=== PATIENT | male | born 1980 | race Caucasian/White ===

== ENCOUNTER 2016-08-02 10:43 | Emergency (ER) | payer BC ==
[~2016-08-02] VITALS: Ht 182.9 cm; Wt 86.1 kg
[~2016-08-02 10:43] MED LIST: AMITIZA24 MICROGR PO; ASPIR-LOW81 MG PO; ASPIRIN EC325 MG PO; BUPRENORPHIN-N1 EACH SL; CARAFATE1 GM PO; CICLOPIROX120 ML TP; HYOSCYAMINE0.125 M2 PO; KETOCONAZOLE60 GM TP; MEN'S ONE DAIL1 EACH PO; MIRALAX255 GM PO; NAPROSYN500 MG PO; NEXIUM40 MG PO; REGLAN10 MG PO; SUBOXONE 8 M1 TABLET SL; ZANTAC150 MG PO
[2016-08-02] MEDS ORDERED: NAPROSYN500 MG PO (14:38)
[2016-08-02 14:53] VITALS: BP 120/101
== END 2016-08-02 14:54 | disposition home or self-care (01) ==
LOC: EME 10:43
DX: M54.5 Low back pain (principal); W18.39XA Other fall on same level, initial encounter; Y93.67 Activity, basketball
CPT/HCPCS: 72100; 99281; 99283

== ENCOUNTER 2017-02-09 08:36 | Emergency (ER) | payer BC ==
[~2017-02-09] VITALS: Ht 182.9 cm; Wt 83.5 kg
[2017-02-09 09:39] LABS: HEMATOCRIT 50.1 % (38.0-50.0); HEMOGLOBIN 17.2 G/DL (12.5-16.6); MCH 28.3 PG (29.0-34.0); MCHC 34.3 G/DL (30.0-36.0); MCV 82.5 FL (86-99); PLATELET COUNT 274 K/uL (156-360); RBC DIS.WIDTH-CV 13.1 % (11.8-14.6); RBC DIS.WIDTH-SD 38.8 % (39-53); RED BLOOD COUNT 6.07 M/uL (4.00-5.50); WHITE BLOOD COUNT 18.1 K/uL (4.1-10.2)
[2017-02-09 09:59] LABS: ALBUMIN 4.9 g/dL (3.2-4.8); CHLORIDE 104 mEq/L (99-109); POTASSIUM 4.2 mEq/L (3.7-5.4); SODIUM 143 mEq/L (136-147)
[2017-02-09 10:01] LABS: GLUCOSE 147 mg/dL (70-99)
[2017-02-09 10:02] LABS: TOTAL PROTEIN 8.4 g/dL (6.4-8.3)
[2017-02-09 10:03] LABS: TOTAL BILIRUBIN 0.7 mg/dL (0.0-1.0)
[2017-02-09 10:05] LABS: ALKALINE PHOSPHATASE 84 IU/L (3-129); CREATININE 1.1 mg/dL (0.6-1.3); GFR ESTIMATE (CALCULATED) > 59 mL/min/ (58.99-99999)
[2017-02-09 10:06] LABS: UREA NITROGEN (BUN) 23 mg/dL (9-23)
[2017-02-09 10:07] LABS: AST (GOT) 19 IU/L (2-34)
[2017-02-09 10:08] LABS: ALT (GPT) 24 IU/L (3-49)
[2017-02-09 10:09] LABS: LIPASE 27 U/L (1.0-51.0)
[2017-02-09 11:04] LABS: APPEARANCE TURBID ((CLEAR)); BILIRUBIN NEGATIVE; BLOOD SMALL; COLOR AMBER ((YELLOW)); GLUCOSE (STRIP) NEGATIVE; KETONES 5; LEUKOCYTES NEGATIVE; NITRITE NEGATIVE; PROTEIN (STRIP) 30; SPECIFIC GRAVITY 1.033 (1.000-1.030); UROBILINOGEN 0.2 MG/DL (0.2-1.0)
[2017-02-09 11:21] LABS: EPITHELIAL CELLS RARE /HPF; MUCUS 1+ /LPF; RED BLOOD CELLS NONE SEEN /HPF (0-5); WHITE BLOOD CELLS RARE /HPF (0-5)
[2017-02-09 11:22] LABS: AMORPHOUS URATES CRYSTALS 3+; BACTERIA 1+ /HPF; UCUL ADDED? NO
[2017-02-09] MEDS ORDERED: IBUPROFEN800 MG PO (12:25)
[2017-02-09] MEDS ORDERED: ZOFRAN ODT4 MG PO (12:25)
[2017-02-09 12:51] VITALS: BP 118/74
== END 2017-02-09 12:52 | disposition home or self-care (01) ==
LOC: EME 08:36
PROVIDERS: Nurse Practitioner Family
DX: A08.4 Viral intestinal infection, unspecified (principal); K21.9 Gastro-esophageal reflux disease without esophagitis
CPT/HCPCS: 74176; 80053; 81003; 83690; 85027; 87502; 99281; 99285; J1885; J7030